=== PATIENT | female | born 1985 | race Two or more races ===

== ENCOUNTER 2025-01-30 22:58 | Inpatient (IN) | payer OTHER ==
[~2025-01-30] VITALS: Ht 162.6 cm; Wt 68.0 kg
[2025-01-31] MEDS ORDERED: LEVOTHYROXINE25 MC2 PO (00:02)
--- NOTE | 2025-01-31 00:03 | NUR ---
PTE ALERTA Y ORIENTADA X3 QUIEN REFIERE VENIR POR DOLOR ABDOMINAL Y VOMITOS X10 [id number]. PTE REFIERE MILENA SIDO OPERADA EN EL CL[place] DE [place]
[2025-01-31] MEDS ORDERED: 0.9 % SODIUM CHLORIDE 1,000 ML IV STA (00:27)
[2025-01-31] MEDS ORDERED: KETOROLAC TROMETHAMINE 30 MG VIAL IV STA (00:29)
[2025-01-31] MEDS ORDERED: PROMETHAZINE HCL 50 MG/ML AMPUL IM STA (00:30)
[2025-01-31] MEDS ORDERED: HYOSCYAMINE SULFATE 0.125 MG TAB.SUBL SL ONE (00:30)
[2025-01-31] MEDS ORDERED: PROMETHAZINE HCL 50 MG/ML AMPUL IM ONE ×2 (00:32→00:36)
[2025-01-31] MEDS ORDERED: HYOSCYAMINE SULFATE 0.125 MG TAB.SUBL ONE (00:32)
[2025-01-31] MEDS ORDERED: KETOROLAC TROMETHAMINE 30 MG VIAL ONE (00:32)
[2025-01-31] MEDS ORDERED: FAMOtidine 10 MG/ML (4ML VIAL) IV PUSH STA (00:36)
--- NOTE | 2025-01-31 00:44 | NUR ---
RN RUGGIERO EDUCA A PACIENTE SOBRE TX MEDICO, ESTA REFIERE ENTENDER. SE EXTRAEN MUESTRAS DE LABORATORIO Y SE ADMINISTRAN MEDICAMENTOS DARIEN ORDEN MEDICA.
[2025-01-31 01:02] LABS: HEMATOCRIT 41.2 % (36.0-45.00); HEMOGLOBIN 14.1 g/dL (12.0-15.00); MEAN CORPUSCULAR HEMOGLOBIN 29.7 pg (27.00-32.0); MEAN CORPUSCULAR HGB CONC 34.2 g/dl (32.0-36.0); PLATELET COUNT 357 K/uL (150-450); RED BLOOD COUNT 4.74 M/uL (4.00-6.00); RED CELL DISTRIBUTION WIDTH 13.9 % (11.5-14.5)
[2025-01-31] MEDS ORDERED: ONDANSETRON HCL 2 MG/ML VIAL IV STA ×2 (04:30→07:25)
[2025-01-31] MEDS ORDERED: ONDANSETRON HCL 2 MG/ML VIAL ONE ×3 (05:15→19:41)
[2025-01-31] MEDS ORDERED: MORPHINE SULFATE 4 MG/ML VIAL IV STA (07:24)
[2025-01-31] MEDS ORDERED: MORPHINE SULFATE 2 MG/ML SYRINGE IV ONE (08:15)
[2025-01-31] MEDS ORDERED: DICYCLOMINE HCL 20 MG TABLET PO ONE (08:15)
[2025-01-31] MEDS ORDERED: DICYCLOMINE HCL 10 MG CAPSULE PO ONE (08:24)
[2025-01-31 09:11] LABS: ALBUMIN 3.8 gm/dL (3.4-5.0); BILIRUBIN TOTAL 1.89 mg/dL (0.3-1.2); CREATININE SERUM 0.8 mg/dL (0.55-1.02); GFR 79.04; GLOBULINA 3.9 G/DL (2.4-3.5); POTASSIUM 5.22 mEq/L (3.5-5.1); TOTAL PROTEIN 7.7 gm/dL (6.4-8.2)
[2025-01-31] MEDS ORDERED: FAMOTIDINE/PF 20 MG/2 ML VIAL IV PUSH ONE (10:15)
[2025-01-31] MEDS ORDERED: MORPHINE SULFATE 4 MG/ML CARTRIDGE IV ONE ×2 (10:15→17:45)
[2025-01-31] MEDS ORDERED: FAMOTIDINE/PF 20 MG/2 ML VIAL ONE (11:08)
[2025-01-31] MEDS ORDERED: 0.9 % SODIUM CHLORIDE 1,000 ML IV SCH (12:15)
[2025-01-31] MEDS ORDERED: MORPHINE SULFATE 4 MG/ML VIAL IV SCH (14:00)
[2025-01-31 15:07] VITALS: BP 150/85; O2SAT 98
[2025-01-31 17:34] VITALS: BP 157/68
[2025-01-31] MEDS ORDERED: MORPHINE SULFATE 4 MG/ML CARTRIDGE IV PRN (17:45)
[2025-01-31] MEDS ORDERED: ONDANSETRON HCL 2 MG/ML VIAL IV PRN (19:45)
[2025-01-31] MEDS ORDERED: MORPHINE SULFATE 4 MG/ML CARTRIDGE IV SCH (20:00)
[2025-02-01 02:00] VITALS: BP 148/87; O2SAT 92
[2025-02-01] MEDS ORDERED: PANTOPRAZOLE SODIUM 40 MG/VIAL VIAL IV SCH (07:30)
[2025-02-01 08:27] LABS: HEMATOCRIT 37.8 % (36.0-45.00); HEMOGLOBIN 12.8 g/dL (12.0-15.00); MEAN CELL VOLUME 88.3 fL (80.00-100.00); MEAN CORPUSCULAR HGB CONC 33.9 g/dl (32.0-36.0); PLATELET COUNT 342 K/uL (150-450); RED BLOOD COUNT 4.28 M/uL (4.00-6.00); RED CELL DISTRIBUTION WIDTH 13.6 % (11.5-14.5)
[2025-02-01 08:33] LABS: ALBUMIN 3.5 gm/dL (3.4-5.0); BILIRUBIN TOTAL 0.96 mg/dL (0.3-1.2); CALCIUM 7.5 mg/dL (8.5-10.1); CREATININE SERUM 0.66 mg/dL (0.55-1.02); GFR 98.69; POTASSIUM 3.54 mEq/L (3.5-5.1); TOTAL PROTEIN 6.5 gm/dL (6.4-8.2)
[2025-02-01 08:56] VITALS: BP 151/97; O2SAT 94
[2025-02-01] MEDS ORDERED: MEPERIDINE HCL/PF 25 MG/ML VIAL IV SCH (09:00)
[2025-02-01 09:11] LABS: C-REACTIVE PROTEIN 9.9 MG/DL (0.00-0.29)
[2025-02-01] MEDS ORDERED: DIPHENHYDRAMINE HCL 50 MG/ML VIAL 1ML ONE (09:12)
[2025-02-01] MEDS ORDERED: METHYLPREDNISOLONE SOD SUCC 40 MG VIAL ONE (09:12)
[2025-02-01] MEDS ORDERED: METHYLPREDNISOLONE SOD SUCC 40 MG VIAL IV ONE (09:30)
[2025-02-01] MEDS ORDERED: DIPHENHYDRAMINE HCL 50 MG/ML VIAL 1ML IV NR (10:15)
[2025-02-01] MEDS ORDERED: MORPHINE SULFATE 4 MG/ML CARTRIDGE IV SCH (12:00)
[2025-02-01] MEDS ORDERED: PIPERACILLIN/TAZOBACTAM SODIUM 3.375 GM in 0.9 % SODIUM CHLORIDE 100 ML IV SCH (12:00)
[2025-02-01] MEDS ORDERED: MORPHINE SULFATE 4 MG/ML CARTRIDGE IV PRN (16:00)
[2025-02-01] MEDS ORDERED: ACETAMINOPHEN 500 MG GEL..CAP PO PRN (16:00)
[2025-02-01 16:51] VITALS: BP 140/83
[2025-02-01 18:02] LABS: PH,URINE 5.5 (5.0-8.0); URINE APPEARANCE Clear; URINE BILIRRUBIN Negative (NEGATIVE); URINE BLOOD Trace; URINE COLOR Yellow; URINE GLUCOSE Negative (NEGATIVE); URINE KETONE 15 (NEGATIVE); URINE LEUKOCYTE Negative; URINE NITRATE Negative; URINE UROBILINOGEN 0.2 E.U./dl
[2025-02-01 18:05] LABS: URINE BACTERIA 750.2 uL (0.0-1933); URINE EPITHELIAL CELLS 44.1 uL (0.0-38.8); URINE RBC 18.7 uL (0.0-20.8); URINE WBC 38.3 uL (0.0-23.2)
[2025-02-01 18:26] LABS: URINE CAST 0.14 uL (0.0-1.40); URINE MUCUS NEGATIVE; URINE PROTEIN 100 (NEGATIVE)
[2025-02-01 19:03] LABS: C-REACTIVE PROTEIN 19.4 MG/DL (0.00-0.29)
[2025-02-02 03:27] VITALS: BP 143/90; O2SAT 97
[2025-02-02] MEDS ORDERED: LIDOCAINE 5% 1 PATCH ADH. TOP ONE (03:30)
[2025-02-02] MEDS ORDERED: DIPHENHYDRAMINE HCL 50 MG/ML VIAL 1ML IV ONE (03:30)
[2025-02-02 05:50] LABS: HEMATOCRIT 35.4 % (36.0-45.00); HEMOGLOBIN 11.7 g/dL (12.0-15.00); MEAN CELL VOLUME 88.7 fL (80.00-100.00); MEAN CORPUSCULAR HEMOGLOBIN 29.3 pg (27.00-32.0); PLATELET COUNT 292 K/uL (150-450); RED CELL DISTRIBUTION WIDTH 14.4 % (11.5-14.5)
[2025-02-02 06:57] LABS: ALBUMIN 2.9 gm/dL (3.4-5.0); BILIRUBIN TOTAL 0.98 mg/dL (0.3-1.2); CALCIUM 7.2 mg/dL (8.5-10.1); CREATININE SERUM 0.61 mg/dL (0.55-1.02); GFR 108.09; GLOBULINA 2.9 G/DL (2.4-3.5); POTASSIUM 3.4 mEq/L (3.5-5.1); TOTAL PROTEIN 5.8 gm/dL (6.4-8.2)
[2025-02-02 08:12] VITALS: BP 152/99
[2025-02-02] MEDS ORDERED: TRAMADOL HCL 50 MG TABLET PO SCH (13:00)
[2025-02-02] MEDS ORDERED: FAMOtidine 20 MG TABLET PO SCH (17:00)
[2025-02-02] MEDS ORDERED: LACTOBACILLUS ACIDOPHILUS 1 CAP CAP PO SCH (17:00)
[2025-02-02 17:45] VITALS: O2SAT 85
[2025-02-02] MEDS ORDERED: MEROPENEM 500 MG/VIAL VIAL IV SCH (18:00)
[2025-02-02 18:02] VITALS: BP 157/95; O2SAT 99
[2025-02-02 20:38] VITALS: O2SAT 93
[2025-02-02] MEDS ORDERED: DOCUSATE SODIUM 100MG CAP PO SCH (21:00)
[2025-02-02] MEDS ORDERED: LORazepam 0.5 MG TABLET PO SCH (21:00)
[2025-02-03] VITALS: BP 163/100; O2SAT 96; O2SAT 97
[2025-02-03 05:16] VITALS: O2SAT 90
[2025-02-03 06:16] LABS: HEMATOCRIT 32.2 % (36.0-45.00); HEMOGLOBIN 11.2 g/dL (12.0-15.00); MEAN CELL VOLUME 86.7 fL (80.00-100.00); MEAN CORPUSCULAR HEMOGLOBIN 30.1 pg (27.00-32.0); MEAN CORPUSCULAR HGB CONC 34.8 g/dl (32.0-36.0); PLATELET COUNT 297 K/uL (150-450); RED BLOOD COUNT 3.72 M/uL (4.00-6.00); RED CELL DISTRIBUTION WIDTH 14.1 % (11.5-14.5)
[2025-02-03 06:55] LABS: ALBUMIN 2.7 gm/dL (3.4-5.0); BILIRUBIN TOTAL 1.21 mg/dL (0.3-1.2); CALCIUM 7.9 mg/dL (8.5-10.1); CREATININE SERUM 0.47 mg/dL (0.55-1.02); GFR 146.03; GLOBULINA 3.1 G/DL (2.4-3.5); POTASSIUM 3.44 mEq/L (3.5-5.1); TOTAL PROTEIN 5.8 gm/dL (6.4-8.2)
[2025-02-03 06:57] LABS: C-REACTIVE PROTEIN 24.8 MG/DL (0.00-0.29)
[2025-02-03] MEDS ORDERED: ENOXAPARIN SODIUM 40 MG/0.4 ML SYRINGE SUBCUTANEO SCH (09:00)
[2025-02-03 14:07] VITALS: O2SAT 95
[2025-02-03 17:14] VITALS: O2SAT 90
[2025-02-03] MEDS ORDERED: LEVALBUTEROL HCL 0.63 MG/3 ML SOLUTION IH NR (18:00)
[2025-02-03 20:28] VITALS: BP 150/80
[2025-02-03 22:44] VITALS: O2SAT 92
[2025-02-04] VITALS (11 sets, daily range): BP systolic 149–175; BP diastolic 92–100; O2SAT 89–100
[2025-02-04 05:05] LABS: HEMATOCRIT 29.9 % (36.0-45.00); HEMOGLOBIN 10.3 g/dL (12.0-15.00); MEAN CELL VOLUME 86.4 fL (80.00-100.00); MEAN CORPUSCULAR HEMOGLOBIN 29.8 pg (27.00-32.0); MEAN CORPUSCULAR HGB CONC 34.6 g/dl (32.0-36.0); PLATELET COUNT 311 K/uL (150-450); RED BLOOD COUNT 3.46 M/uL (4.00-6.00); RED CELL DISTRIBUTION WIDTH 13.7 % (11.5-14.5)
[2025-02-04 05:27] LABS: ALBUMIN 2.3 gm/dL (3.4-5.0); BILIRUBIN TOTAL 1.1 mg/dL (0.3-1.2); CALCIUM 7.9 mg/dL (8.5-10.1); CREATININE SERUM 0.35 mg/dL (0.55-1.02); GFR 205.2; POTASSIUM 3.02 mEq/L (3.5-5.1); TOTAL PROTEIN 5.3 gm/dL (6.4-8.2)
[2025-02-04 09:59] LABS: ABG PH 7.451 (7.35-7.45); ABG PO2 61.6 mmHg (80-100); ABG pCO2 38.1 mmHg (35-45); BASE EXCESS 2.1 mmol/l; BICARBONATE 25.9 mmol/l (23-25); SaO2 92.6 %; Tco2 27.1 mmol/l
[2025-02-04 10:01] LABS: allen test SATISFACTORY; mode NASAL CANNULA; o2 32 %; puncture site RADIAL RIGHT
[2025-02-04] MEDS ORDERED: LEVALBUTEROL HCL 0.63 MG/3 ML SOLUTION IH SCH (12:00)
[2025-02-04] MEDS ORDERED: VANCOMYCIN HCL 1,000 MG VIAL IV SCH (17:00)
[2025-02-04] MEDS ORDERED: DIPHENHYDRAMINE HCL 50 MG/ML VIAL 1ML IV NR (17:00)
[2025-02-04] MEDS ORDERED: METHYLPREDNISOLONE SOD SUCC 40 MG VIAL IV NR (17:00)
[2025-02-04] MEDS ORDERED: TRAMADOL HCL 50 MG TABLET PO SCH (18:00)
[2025-02-04] MEDS ORDERED: FUROsemide 20 MG/2 ML VIAL IV NR (18:45)
[2025-02-04] MEDS ORDERED: ENOXAPARIN SODIUM 80 MG/0.8 ML SYRINGE SUBCUTANEO SCH (21:00)
[2025-02-04] MEDS ORDERED: METHYLPREDNISOLONE SOD SUCC 40 MG VIAL IV SCH (21:00)
[2025-02-04 21:41] LABS: INFLUENZA A AG NEGATIVE (NEGATIVE)
[2025-02-05] VITALS (8 sets, daily range): BP systolic 150–159; BP diastolic 90–102; O2SAT 89–98
[2025-02-05 06:15] LABS: HEMATOCRIT 30.5 % (36.0-45.00); HEMOGLOBIN 10.4 g/dL (12.0-15.00); MEAN CELL VOLUME 87.1 fL (80.00-100.00); MEAN CORPUSCULAR HEMOGLOBIN 29.8 pg (27.00-32.0); MEAN CORPUSCULAR HGB CONC 34.2 g/dl (32.0-36.0); PLATELET COUNT 350 K/uL (150-450); RED CELL DISTRIBUTION WIDTH 13.9 % (11.5-14.5)
[2025-02-05 06:56] LABS: ALBUMIN 2.4 gm/dL (3.4-5.0); CALCIUM 8.3 mg/dL (8.5-10.1); CREATININE SERUM 0.38 mg/dL (0.55-1.02); GFR 186.63; GLOBULINA 3.4 G/DL (2.4-3.5); MAGNESIUM 2.1 mg/dL (1.8-2.4); POTASSIUM 3.15 mEq/L (3.5-5.1); TOTAL PROTEIN 5.8 gm/dL (6.4-8.2)
[2025-02-05 07:59] LABS: PHOSPHOROUS 1.9 mg/dL (2.5-4.9)
[2025-02-05] MEDS ORDERED: POTASSIUM PHOS,M-BASIC-D-BASIC 3 MM/ML VIAL IV NR (12:00)
[2025-02-06] VITALS (11 sets, daily range): BP systolic 150–182; BP diastolic 82–100; O2SAT 92–97
[2025-02-06] MEDS ORDERED: TRAMADOL HCL 50 MG TABLET PO PRN (13:17)
[2025-02-06] MEDS ORDERED: LOSARTAN POTASSIUM 25 MG TABLET PO NR (16:00)
[2025-02-06] MEDS ORDERED: POLYETHYLENE GLYCOL 3350 17 GM BLIST.PACK PO SCH (17:00)
[2025-02-06] MEDS ORDERED: hydrALAZINE HCL 20 MG VIAL IV NR (19:00)
[2025-02-06] MEDS ORDERED: INSULIN REGULAR, HUMAN 1,000 UNIT/10 ML UNITS IV STA (20:29)
[2025-02-06] MEDS ORDERED: INSULIN LISPRO 1,000 UNIT/10 ML UNITS SUBCUTANEO STA (20:30)
[2025-02-06] MEDS ORDERED: DOCUSATE SODIUM 100MG CAP PO SCH (21:00)
[2025-02-06] MEDS ORDERED: AMLODIPINE BESYLATE 10 MG TABLET PO SCH (21:04)
[2025-02-07 00:49] VITALS: O2SAT 94
[2025-02-07 02:10] VITALS: BP 156/85; O2SAT 97
[2025-02-07] MEDS ORDERED: LEVOTHYROXINE SODIUM 25 MCG TABLET PO SCH (06:00)
[2025-02-07] MEDS ORDERED: ENOXAPARIN SODIUM 40 MG/0.4 ML SYRINGE SUBCUTANEO SCH (09:00)
[2025-02-07 09:38] LABS: HEMATOCRIT 29.8 % (36.0-45.00); HEMOGLOBIN 9.9 g/dL (12.0-15.00); MEAN CELL VOLUME 87.8 fL (80.00-100.00); MEAN CORPUSCULAR HEMOGLOBIN 29.1 pg (27.00-32.0); MEAN CORPUSCULAR HGB CONC 33.1 g/dl (32.0-36.0); PLATELET COUNT 388 K/uL (150-450); RED BLOOD COUNT 3.39 M/uL (4.00-6.00); RED CELL DISTRIBUTION WIDTH 14.2 % (11.5-14.5)
[2025-02-07 10:19] VITALS: O2SAT 95
[2025-02-07 10:34] LABS: ALBUMIN 2.6 gm/dL (3.4-5.0); BILIRUBIN TOTAL 0.51 mg/dL (0.3-1.2); CALCIUM 8.4 mg/dL (8.5-10.1); CREATININE SERUM 0.43 mg/dL (0.55-1.02); GFR 161.81; GLOBULINA 3.2 G/DL (2.4-3.5); POTASSIUM 3.21 mEq/L (3.5-5.1); T4 FREE 1.34 NG/ML (0.76-1.46); TOTAL PROTEIN 5.8 gm/dL (6.4-8.2); TSH 2.52 uIU/mL (0.358-3.74)
[2025-02-07] MEDS ORDERED: SODIUM CHLORIDE 0.45 % 1,000 ML IV SCH (10:45)
[2025-02-07] MEDS ORDERED: AMLODIPINE BESYLATE 5 MG TABLET PO NR (11:00)
[2025-02-07 15:05] VITALS: BP 147/83; O2SAT 98
[2025-02-07] MEDS ORDERED: VANCOMYCIN HCL 5 MG/ML REDILUIDO IV SCH (17:00)
[2025-02-07 17:47] VITALS: O2SAT 93
[2025-02-07 20:42] VITALS: O2SAT 99
[2025-02-08] VITALS (9 sets, daily range): BP systolic 141–149; BP diastolic 81–91; O2SAT 96–99
[2025-02-08] MEDS ORDERED: AMLODIPINE BESYLATE 5 MG TABLET PO SCH (09:00)
[2025-02-09] VITALS (10 sets, daily range): BP systolic 131–156; BP diastolic 86–95; O2SAT 90–100
[2025-02-09] MEDS ORDERED: ACETAMINOPHEN 500 MG GEL..CAP PO PRN (01:30)
[2025-02-09 06:22] LABS: HEMATOCRIT 32.7 % (36.0-45.00); HEMOGLOBIN 11.4 g/dL (12.0-15.00); MEAN CELL VOLUME 85.7 fL (80.00-100.00); MEAN CORPUSCULAR HEMOGLOBIN 29.8 pg (27.00-32.0); MEAN CORPUSCULAR HGB CONC 34.8 g/dl (32.0-36.0); PLATELET COUNT 422 K/uL (150-450); RED BLOOD COUNT 3.82 M/uL (4.00-6.00); RED CELL DISTRIBUTION WIDTH 14.5 % (11.5-14.5)
[2025-02-09 07:18] LABS: ALBUMIN 2.8 gm/dL (3.4-5.0); BILIRUBIN TOTAL 0.63 mg/dL (0.3-1.2); CALCIUM 8.5 mg/dL (8.5-10.1); CREATININE SERUM 0.42 mg/dL (0.55-1.02); GFR 166.27; GLOBULINA 3.4 G/DL (2.4-3.5); MAGNESIUM 1.8 mg/dL (1.8-2.4); PHOSPHOROUS 4.1 mg/dL (2.5-4.9); POTASSIUM 4.04 mEq/L (3.5-5.1); TOTAL PROTEIN 6.2 gm/dL (6.4-8.2)
[2025-02-09 07:20] LABS: C-REACTIVE PROTEIN 4.68 MG/DL (0.00-0.29)
[2025-02-09] MEDS ORDERED: MAGNESIUM HYDROXIDE 30 ML BLIST.PACK PO NR (12:30)
[2025-02-09] MEDS ORDERED: MAGNESIUM HYDROXIDE PO ONE (12:30)
[2025-02-09] MEDS ORDERED: KETOROLAC TROMETHAMINE 30 MG VIAL IM NR (12:30)
[2025-02-09] MEDS ORDERED: MINERAL OIL 30 ML BLIST.PACK PO NR (12:30)
[2025-02-09] MEDS ORDERED: MINERAL OIL PO ONE (12:30)
[2025-02-09] MEDS ORDERED: METHYLPREDNISOLONE SOD SUCC 40 MG VIAL IV SCH (21:00)
[2025-02-09] MEDS ORDERED: KETOROLAC TROMETHAMINE 30 MG VIAL IM ONE (21:45)
[2025-02-10] VITALS (8 sets, daily range): BP systolic 130–140; BP diastolic 80–91; O2SAT 90–98
[2025-02-10] MEDS ORDERED: LEVALBUTEROL HCL 0.63 MG/3 ML SOLUTION IH SCH (01:00)
[2025-02-10] MEDS ORDERED: POLYETHYLENE GLYCOL 3350 17 GM BLIST.PACK PO SCH (17:00)
[2025-02-10] MEDS ORDERED: CYCLOBENZAPRINE HCL 5 MG TABLET PO SCH (21:00)
[2025-02-11] VITALS (10 sets, daily range): BP systolic 100–149; BP diastolic 63–89; O2SAT 90–98
[2025-02-11 06:20] LABS: HEMOGLOBIN 11.8 g/dL (12.0-15.00); MEAN CELL VOLUME 87.6 fL (80.00-100.00); MEAN CORPUSCULAR HEMOGLOBIN 29.4 pg (27.00-32.0); MEAN CORPUSCULAR HGB CONC 33.6 g/dl (32.0-36.0); PLATELET COUNT 403 K/uL (150-450)
[2025-02-11 06:40] LABS: ALBUMIN 2.9 gm/dL (3.4-5.0); BILIRUBIN TOTAL 0.57 mg/dL (0.3-1.2); CALCIUM 8.7 mg/dL (8.5-10.1); CREATININE SERUM 0.58 mg/dL (0.55-1.02); GFR 114.56; GLOBULINA 3.3 G/DL (2.4-3.5); POTASSIUM 3.99 mEq/L (3.5-5.1); TOTAL PROTEIN 6.2 gm/dL (6.4-8.2)
[2025-02-11] MEDS ORDERED: METHYLPREDNISOLONE SOD SUCC 40 MG VIAL IV SCH (09:00)
[2025-02-11] MEDS ORDERED: AMLODIPINE BESYLATE 10 MG TABLET PO SCH (09:00)
[2025-02-11] MEDS ORDERED: METHYLPREDNISOLONE SOD SUCC 125 MG VIAL IV NR (14:30)
[2025-02-11] MEDS ORDERED: DIPHENHYDRAMINE HCL 50 MG/ML VIAL 1ML IV NR (14:30)
[2025-02-11] MEDS ORDERED: METHYLPREDNISOLONE SOD SUCC 125 MG/VIAL IV NR (14:30)
[2025-02-12 01:26] VITALS: BP 112/67; O2SAT 95
[2025-02-12 02:55] VITALS: O2SAT 94
[2025-02-12 08:00] VITALS: BP 115/74; O2SAT 97
[2025-02-12] MEDS ORDERED: INTESTINEX680 M1 PO (13:38)
[2025-02-12] MEDS ORDERED: LEVOTHYROXINE25 MCG PO (13:38)
[2025-02-12] MEDS ORDERED: AMLODIPINE BESY10 MG PO (13:38)
[2025-02-12] MEDS ORDERED: PROTONIX40 MG PO (13:41)
[2025-02-12] MEDS ORDERED: LEVOTHYROXINE25 MC2 PO (13:41)
== END 2025-02-12 14:57 | disposition home or self-care (01) | DRG 919 ==
LOC: ER 22:58 → MEDI 01-31 12:34
PROVIDERS: Internal Medicine; Internal Medicine Geriatric Medicine; Internal Medicine Infectious Disease; ADMIT Internal Medicine; ATTEND Internal Medicine
PROC: BW21ZZZ Computerized Tomography (CT Scan) of Abdomen and Pelvis (ICD-10-PCS; principal; 2025-01-31)
PROC: BW21YZZ Computerized Tomography (CT Scan) of Abdomen and Pelvis using Other Contrast (ICD-10-PCS; 2025-02-01)
PROC: 4A12X4Z Monitoring of Cardiac Electrical Activity, External Approach (ICD-10-PCS; 2025-02-02)
PROC: BF37ZZZ Magnetic Resonance Imaging (MRI) of Pancreas (ICD-10-PCS; 2025-02-02)
PROC: BB24YZZ Computerized Tomography (CT Scan) of Bilateral Lungs using Other Contrast (ICD-10-PCS; 2025-02-04)
PROC: B246ZZZ Ultrasonography of Right and Left Heart (ICD-10-PCS; 2025-02-04)
PROC: BB4BZZZ Ultrasonography of Pleura (ICD-10-PCS; 2025-02-04)
PROC: 5A09457 Assistance with Respiratory Ventilation, 24-96 Consecutive Hours, Continuous Positive Airway Pressure (ICD-10-PCS; 2025-02-04)
PROC: B54CZZZ Ultrasonography of Left Lower Extremity Veins (ICD-10-PCS; 2025-02-05)
PROC: 3E0F7GC Introduction of Other Therapeutic Substance into Respiratory Tract, Via Natural or Artificial Opening (ICD-10-PCS; 2025-02-05)
PROC: BW21YZZ Computerized Tomography (CT Scan) of Abdomen and Pelvis using Other Contrast (ICD-10-PCS; 2025-02-11)
DX: E36.8 Other intraoperative complications of endocrine system (principal); J18.9 Pneumonia, unspecified organism; K85.90 Acute pancreatitis without necrosis or infection, unspecified; R18.8 Other ascites; J45.901 Unspecified asthma with (acute) exacerbation; J90 Pleural effusion, not elsewhere classified; J98.11 Atelectasis; I97.89 Other postprocedural complications and disorders of the circulatory system, not elsewhere classified; G89.18 Other acute postprocedural pain; M54.59 Other low back pain; D72.829 Elevated white blood cell count, unspecified; E86.0 Dehydration; I10 Essential (primary) hypertension; E03.9 Hypothyroidism, unspecified; Y84.8 Other medical procedures as the cause of abnormal reaction of the patient, or of later complication, without mention of misadventure at the time of the procedure